=== PATIENT | male | born 1955 | race Caucasian/White ===

== ENCOUNTER 2019-11-09 13:16 | Outpatient (CLI) | payer OTHER, SELFPAY ==
--- NOTE | 2019-11-09 13:31 | XRR_ITS ---
PROCEDURE INFORMATION: Exam: XR Left Hand Exam date and time: 11/09/2019 2:00 PM Age: 64 years old Clinical indication: Pain and injury or trauma; Fall; Initial encounter; Blunt trauma (contusions or hematomas; Hand; Left; Injury date: 11/07/19 TECHNIQUE: Imaging protocol: XR Left hand. Views: 3 or more views. COMPARISON: No relevant prior studies available. 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 Soft tissues: Normal. Vasculature: Moderate calcified peripheral vascular disease. XR/XR hand LT min 3V* [id number] IMPRESSION: No acute findings.
== END 2019-11-09 13:17 | disposition home or self-care (01) ==
PROVIDERS: Family Provider Nurse Practitioner Family; Visit Provider Nurse Practitioner Family
DX: M79.642 Pain in left hand (principal); W19.XXXA Unspecified fall, initial encounter
CPT/HCPCS: 73130

== ENCOUNTER 2024-03-03 16:14 | Outpatient (CLI) | payer OTHER, SELFPAY ==
--- NOTE | 2024-03-03 16:45 | XR_ITS ---
WS: [id number] Examination: XR knee LT 1-2V 89803 Reason for Exam: L knee pain Date: 03/03/2024 Comparison: None. Findings: The bone density is maintained. There is no destruction There is no fracture or dislocation There is mild narrowing of the medial joint space. Marginal patellar osteophytes are identified. Ther e is a small joint effusion present. Vascular calcifications present. XR/XR knee LT 1-2V [id number] Impression: Osteoarthritic changes are identified. There is no acute bony abnormality.
== END 2024-03-03 16:15 | disposition home or self-care (01) ==
PROVIDERS: Family Provider Nurse Practitioner Family; PCP Internal Medicine; Visit Provider Internal Medicine
DX: M17.12 Unilateral primary osteoarthritis, left knee (principal)
CPT/HCPCS: 73560